=== PATIENT | male | born 1970 | race Caucasian/White ===

== ENCOUNTER → 2016-05-17 | Outpatient (CLI) | payer MEDICARE ==
[~2016-05-17] MED LIST: CELEXA20 MG PO; CUBICIN 500 MG500 MG IV; LISINOPRIL10 MG PO; LORTAB 5-325 M1 EACH PO; LOVENOX SY40 MG/0.4 SQ; PERCOCET 5-3251 EACH PO; ROXICODONE TAB 55 MG PO; TRAZODONE HCL50 MG PO
== END ==
DX: M89.15 Physeal arrest, femur (principal); Z98.890 Other specified postprocedural states
CPT/HCPCS: 73700

== ENCOUNTER → 2016-05-25 | Outpatient (CLI) | payer MEDICARE | LOC: US 09:30 | DX: R10.13 Epigastric pain (principal); R93.2 Abnormal findings on diagnostic imaging of liver and biliary tract | CPT/HCPCS: 76700 ==

== ENCOUNTER → 2016-06-18 | Outpatient (CLI) | payer MEDICARE | LOC: CT 08:00 | DX: R10.13 Epigastric pain (principal); R93.2 Abnormal findings on diagnostic imaging of liver and biliary tract | CPT/HCPCS: J7050; Q9962 ==

== ENCOUNTER → 2016-06-28 | Outpatient (CLI) | payer MEDICARE | LOC: NM 06-21 10:00 | DX: R10.13 Epigastric pain (principal) | CPT/HCPCS: 78226; A9537 ==

== ENCOUNTER → 2016-07-09 | Outpatient (CLI) | payer MEDICARE | LOC: KOH-I 14:52 | DX: S72.402K Unspecified fracture of lower end of left femur, subsequent encounter for closed fracture with nonunion (principal) | CPT/HCPCS: 73700 ==

== ENCOUNTER 2016-07-19 10:50 | Inpatient (IN) | payer MEDICARE, OTHER ==
[~2016-07-19] VITALS: Ht 170.2 cm; Wt 81.6 kg
[2016-07-19 12:17] LABS: HEMOGLOBIN 14.1 gm/dl (14.0-17.5); RED BLOOD COUNT 4.88 M/UL (4.20-5.50); WHITE BLOOD COUNT 7.3 K/UL (4.5-11.0)
[2016-07-19 12:20] LABS: BUN/CREATININE RATIO 16 (0-10)
[2016-07-19] MEDS ORDERED: TRAZODONE HCL50 MG PO (17:08)
[2016-07-19] MEDS ORDERED: LISINOPRIL10 MG PO (17:08)
[2016-07-19] MEDS ORDERED: CELEXA20 MG PO (17:08)
[2016-07-19] MEDS ORDERED: LORTAB 5-325 M1 EACH PO (17:09)
[2016-07-20 05:29] LABS: HEMOGLOBIN 13.8 gm/dl (14.0-17.5); RED BLOOD COUNT 4.78 M/UL (4.20-5.50); WHITE BLOOD COUNT 6.1 K/UL (4.5-11.0)
[2016-07-20 05:55] LABS: BUN/CREATININE RATIO 17 (0-10)
[2016-07-21 05:01] LABS: HEMOGLOBIN 12.4 gm/dl (14.0-17.5)
[2016-07-21 05:05] LABS: RED BLOOD COUNT 4.3 M/UL (4.20-5.50); WHITE BLOOD COUNT 10.9 K/UL (4.5-11.0)
[2016-07-21 05:22] LABS: BUN/CREATININE RATIO 14 (0-10)
[2016-07-22 05:15] LABS: RED BLOOD COUNT 4.2 M/UL (4.20-5.50)
[2016-07-22 05:16] LABS: WHITE BLOOD COUNT 7.6 K/UL (4.5-11.0)
[2016-07-22 05:56] LABS: BUN/CREATININE RATIO 13 (0-10)
[2016-07-23 05:25] LABS: HEMOGLOBIN 12.9 gm/dl (14.0-17.5); RED BLOOD COUNT 4.4 M/UL (4.20-5.50); WHITE BLOOD COUNT 7.4 K/UL (4.5-11.0)
[2016-07-23 05:51] LABS: BUN/CREATININE RATIO 14 (0-10)
[2016-07-23] MEDS ORDERED: LOVENOX SY40 MG/0.4 SQ (13:48)
[2016-07-23] MEDS ORDERED: CUBICIN 500 MG500 MG IV (13:52)
[2016-07-23] MEDS ORDERED: ROXICODONE TAB 55 MG PO (14:06)
[2016-07-23] MEDS ORDERED: PERCOCET 5-3251 EACH PO (15:59)
== END 2016-07-23 17:10 | disposition home or self-care (01) | DRG 498 ==
LOC: OPSV2 10:50 → M/S 16:11
PROVIDERS: Internal Medicine Infectious Disease; ADMIT Orthopaedic Surgery
PROC: 3E0V329 Introduction of Other Anti-infective into Bones, Percutaneous Approach (ICD-10-PCS; 2016-07-20)
PROC: 0QPC04Z Removal of Internal Fixation Device from Left Lower Femur, Open Approach (ICD-10-PCS; principal; 2016-07-20 19:30)
DX: M86.152 Other acute osteomyelitis, left femur (principal); T84.621A Infection and inflammatory reaction due to internal fixation device of left femur, initial encounter; I10 Essential (primary) hypertension; F41.9 Anxiety disorder, unspecified; F32.9 Major depressive disorder, single episode, unspecified; K21.9 Gastro-esophageal reflux disease without esophagitis; Z98.890 Other specified postprocedural states; Z87.828 Personal history of other (healed) physical injury and trauma; W19.XXXS Unspecified fall, sequela; F17.210 Nicotine dependence, cigarettes, uncomplicated; Z79.899 Other long term (current) drug therapy; Z87.442 Personal history of urinary calculi
CPT/HCPCS: 36415; 73552; 76000; 80048; 80053; 80202; 82550; 85025; 85027; 86140; 87070; 87205; 97116; 97530; 97535; C1713; J0690; J0878; J1100; J1650; J2250; J2270; J2405; J2710; J2795; J3010; J3260; J3370; J7050; J7070; J7120

== ENCOUNTER → 2016-07-24 | Outpatient (CLI) | payer MEDICARE | LOC: OPSV 08:00 | DX: M86.8X5 Other osteomyelitis, thigh (principal) | CPT/HCPCS: 96365; J0878; J7050 ==

== ENCOUNTER → 2016-07-25 | Outpatient (CLI) | payer MEDICARE, OTHER ==
[~2016-07-25] VITALS: Ht 170.2 cm; Wt 81.6 kg
== END ==
LOC: OPSV 07:55
DX: M86.652 Other chronic osteomyelitis, left thigh (principal)
CPT/HCPCS: 96365; J0878; J7050

== ENCOUNTER → 2016-07-26 | Outpatient (CLI) | payer MEDICARE, OTHER ==
[~2016-07-26] VITALS: Ht 170.2 cm; Wt 81.6 kg
== END ==
LOC: OPSV 08:00
DX: M86.652 Other chronic osteomyelitis, left thigh (principal)
CPT/HCPCS: 96365; J0878; J7050

== ENCOUNTER → 2016-07-27 | Outpatient (CLI) | payer MEDICARE, OTHER ==
[~2016-07-27] VITALS: Ht 170.2 cm; Wt 81.6 kg
== END ==
LOC: OPSV 14:54
DX: M86.652 Other chronic osteomyelitis, left thigh (principal)
CPT/HCPCS: 96365; J0878; J7050

== ENCOUNTER → 2016-07-28 | Outpatient (CLI) | payer MEDICARE, OTHER ==
[~2016-07-28] VITALS: Ht 170.2 cm; Wt 81.6 kg
== END ==
LOC: OPSV 15:00
DX: M86.652 Other chronic osteomyelitis, left thigh (principal)
CPT/HCPCS: 96365; J0878; J7050

== ENCOUNTER → 2016-07-29 | Outpatient (CLI) | payer MEDICARE, OTHER ==
[2016-07-29 17:21] LABS: BUN/CREATININE RATIO 20 (0-10)
== END ==
LOC: OPSV 15:00
PROVIDERS: Internal Medicine Infectious Disease
DX: M86.652 Other chronic osteomyelitis, left thigh (principal)
CPT/HCPCS: 36415; 80048; 82550; 86140; 96365; J0878; J7050

== ENCOUNTER → 2016-07-30 | Outpatient (CLI) | payer MEDICARE, OTHER ==
[~2016-07-30] VITALS: Ht 170.2 cm; Wt 81.6 kg
== END ==
LOC: OPSV 08:30
DX: M86.8X5 Other osteomyelitis, thigh (principal)
CPT/HCPCS: 96365; J0878; J7050

== ENCOUNTER → 2016-07-31 | Outpatient (CLI) | payer MEDICARE, OTHER ==
[~2016-07-31] VITALS: Ht 170.2 cm; Wt 81.6 kg
== END ==
LOC: OPSV 07:41
DX: M86.652 Other chronic osteomyelitis, left thigh (principal)
CPT/HCPCS: 96365; J0878; J7050

== ENCOUNTER → 2016-08-01 | Outpatient (CLI) | payer MEDICARE, OTHER ==
[~2016-08-01] VITALS: Ht 170.2 cm; Wt 81.6 kg
== END ==
LOC: OPSV 08:04
DX: M86.652 Other chronic osteomyelitis, left thigh (principal)
CPT/HCPCS: 96365; J0878; J7050

== ENCOUNTER → 2016-08-02 | Outpatient (CLI) | payer MEDICARE, OTHER ==
[~2016-08-02] VITALS: Ht 170.2 cm; Wt 81.6 kg
== END ==
LOC: OPSV 10:30
DX: M86.652 Other chronic osteomyelitis, left thigh (principal)
CPT/HCPCS: 96365; J0878; J7050

== ENCOUNTER → 2016-08-03 | Outpatient (CLI) | payer MEDICARE, OTHER ==
[~2016-08-03] VITALS: Ht 170.2 cm; Wt 81.6 kg
== END ==
LOC: OPSV 14:59
DX: M86.652 Other chronic osteomyelitis, left thigh (principal)
CPT/HCPCS: 96365; J0878; J7050

== ENCOUNTER → 2016-08-04 | Outpatient (CLI) | payer MEDICARE, OTHER ==
[~2016-08-04] VITALS: Ht 170.2 cm; Wt 81.6 kg
== END ==
LOC: OPSV 14:49
DX: M86.652 Other chronic osteomyelitis, left thigh (principal)
CPT/HCPCS: 96365; J0878; J7050

== ENCOUNTER → 2016-08-05 | Outpatient (CLI) | payer MEDICARE, OTHER ==
[~2016-08-05] VITALS: Ht 170.2 cm; Wt 81.6 kg
[2016-08-05 15:50] LABS: BUN/CREATININE RATIO 14 (0-10)
== END ==
LOC: OPSV 14:45
PROVIDERS: Internal Medicine Infectious Disease
DX: M86.652 Other chronic osteomyelitis, left thigh (principal)
CPT/HCPCS: 36415; 80048; 82550; 86140; 96365; J0878; J7050

== ENCOUNTER → 2016-08-06 | Outpatient (CLI) | payer MEDICARE, OTHER ==
[~2016-08-06] VITALS: Ht 170.2 cm; Wt 81.6 kg
== END ==
LOC: OPSV 14:48
DX: M86.652 Other chronic osteomyelitis, left thigh (principal)
CPT/HCPCS: 96365; J0878; J7050

== ENCOUNTER → 2016-08-07 | Outpatient (CLI) | payer MEDICARE, OTHER ==
[~2016-08-07] VITALS: Ht 170.2 cm; Wt 81.6 kg
== END ==
LOC: OPSV 08:05
DX: M86.60 Other chronic osteomyelitis, unspecified site (principal)
CPT/HCPCS: 96365; J0878; J7050

== ENCOUNTER → 2016-08-08 | Outpatient (CLI) | payer MEDICARE, OTHER ==
[~2016-08-08] VITALS: Ht 170.2 cm; Wt 81.6 kg
== END ==
LOC: OPSV 07:35
DX: M86.60 Other chronic osteomyelitis, unspecified site (principal)
CPT/HCPCS: 96365; J0878; J7050

== ENCOUNTER → 2016-08-09 | Outpatient (CLI) | payer MEDICARE, OTHER | LOC: OPSV 14:58 | DX: M86.652 Other chronic osteomyelitis, left thigh (principal) | CPT/HCPCS: 96365; J0878; J7050 ==

== ENCOUNTER → 2016-08-10 | Outpatient (CLI) | payer MEDICARE, OTHER ==
[~2016-08-10] VITALS: Ht 170.2 cm; Wt 81.6 kg
== END ==
LOC: OPSV 15:00
DX: M86.652 Other chronic osteomyelitis, left thigh (principal)
CPT/HCPCS: 96365; J0878; J7050

== ENCOUNTER → 2016-08-11 | Outpatient (CLI) | payer MEDICARE, OTHER ==
[~2016-08-11] VITALS: Ht 170.2 cm; Wt 81.6 kg
== END ==
LOC: OPSV 15:00
DX: M86.652 Other chronic osteomyelitis, left thigh (principal)
CPT/HCPCS: 96365; J0878; J7050

== ENCOUNTER → 2016-08-12 | Outpatient (CLI) | payer MEDICARE, OTHER ==
[~2016-08-12] VITALS: Ht 170.2 cm; Wt 81.6 kg
[2016-08-12 16:13] LABS: BUN/CREATININE RATIO 14 (0-10)
== END ==
LOC: OPSV 14:59
PROVIDERS: Internal Medicine Infectious Disease
DX: M86.8X6 Other osteomyelitis, lower leg (principal)
CPT/HCPCS: 36415; 80048; 82550; 86140; 96365; J0878; J7050

== ENCOUNTER → 2016-08-13 | Outpatient (CLI) | payer MEDICARE, OTHER ==
[~2016-08-13] VITALS: Ht 170.2 cm; Wt 81.6 kg
== END ==
LOC: OPSV 15:00
DX: M86.652 Other chronic osteomyelitis, left thigh (principal)
CPT/HCPCS: 96365; J0878; J7050

== ENCOUNTER → 2016-08-14 | Outpatient (CLI) | payer MEDICARE, OTHER ==
[~2016-08-14] VITALS: Ht 170.2 cm; Wt 81.6 kg
== END ==
LOC: OPSV 09:00
DX: M86.8X5 Other osteomyelitis, thigh (principal)
CPT/HCPCS: 96365

== ENCOUNTER → 2016-08-15 | Outpatient (CLI) | payer MEDICARE, OTHER ==
[~2016-08-15] VITALS: Ht 170.2 cm; Wt 81.6 kg
== END ==
LOC: OPSV 08:44
DX: M86.8X6 Other osteomyelitis, lower leg (principal)
CPT/HCPCS: 96365; J0878; J7050

== ENCOUNTER → 2016-08-16 | Outpatient (CLI) | payer MEDICARE, OTHER ==
[~2016-08-16] VITALS: Ht 170.2 cm; Wt 81.6 kg
== END ==
LOC: OPSV 15:00
DX: M86.8X5 Other osteomyelitis, thigh (principal)
CPT/HCPCS: 96365; J0878; J7050

== ENCOUNTER → 2016-08-17 | Outpatient (CLI) | payer MEDICARE, OTHER | LOC: OPSV 15:00 | DX: M86.652 Other chronic osteomyelitis, left thigh (principal) | CPT/HCPCS: 96365; J0878; J7050 ==

== ENCOUNTER → 2016-08-18 | Outpatient (CLI) | payer MEDICARE, OTHER ==
[~2016-08-18] VITALS: Ht 170.2 cm; Wt 81.6 kg
== END ==
LOC: OPSV 15:00
DX: M86.8X5 Other osteomyelitis, thigh (principal)
CPT/HCPCS: 96365; J0878; J7050

== ENCOUNTER → 2016-08-19 | Outpatient (CLI) | payer MEDICARE, OTHER ==
[~2016-08-19] VITALS: Ht 170.2 cm; Wt 81.6 kg
[2016-08-19 13:33] LABS: BUN/CREATININE RATIO 18 (0-10)
== END ==
LOC: OPSV 12:14
PROVIDERS: Internal Medicine Infectious Disease
DX: M86.652 Other chronic osteomyelitis, left thigh (principal)
CPT/HCPCS: 36415; 80048; 82550; 86140; 96365; J0878; J7050

== ENCOUNTER → 2016-08-20 | Outpatient (CLI) | payer MEDICARE, OTHER ==
[~2016-08-20] VITALS: Ht 170.2 cm; Wt 81.6 kg
== END ==
LOC: OPSV 15:00
DX: M86.652 Other chronic osteomyelitis, left thigh (principal)
CPT/HCPCS: 96365; J0878; J7050

== ENCOUNTER → 2016-08-21 | Outpatient (CLI) | payer MEDICARE, OTHER ==
[~2016-08-21] VITALS: Ht 170.2 cm; Wt 81.6 kg
== END ==
LOC: OPSV 07:39
DX: M86.8X5 Other osteomyelitis, thigh (principal)
CPT/HCPCS: 96365; J0878; J7050

== ENCOUNTER → 2016-08-22 | Outpatient (CLI) | payer MEDICARE, OTHER ==
[~2016-08-22] VITALS: Ht 170.2 cm; Wt 81.6 kg
== END ==
LOC: OPSV 08:32
DX: M86.652 Other chronic osteomyelitis, left thigh (principal)
CPT/HCPCS: 96365; J0878; J7050

== ENCOUNTER → 2016-08-23 | Outpatient (CLI) | payer MEDICARE, OTHER ==
[~2016-08-23] VITALS: Ht 170.2 cm; Wt 81.6 kg
== END ==
LOC: OPSV 15:00
DX: M86.652 Other chronic osteomyelitis, left thigh (principal)
CPT/HCPCS: 96365; J0878; J7050

== ENCOUNTER → 2016-08-24 | Outpatient (CLI) | payer MEDICARE, OTHER ==
[~2016-08-24] VITALS: Ht 170.2 cm; Wt 81.6 kg
[2016-09-03 16:23] LABS: BUN/CREATININE RATIO 18 (0-10)
== END ==
LOC: OPSV 15:00
PROVIDERS: Internal Medicine Infectious Disease
DX: M86.8X5 Other osteomyelitis, thigh (principal)
CPT/HCPCS: 82550; 86140; 96365; J0878; J7050

== ENCOUNTER → 2016-08-25 | Outpatient (CLI) | payer MEDICARE, OTHER ==
[~2016-08-25] VITALS: Ht 170.2 cm; Wt 81.6 kg
== END ==
LOC: OPSV 15:00
DX: M86.652 Other chronic osteomyelitis, left thigh (principal)
CPT/HCPCS: 96365; J0878

== ENCOUNTER → 2016-08-26 | Outpatient (CLI) | payer MEDICARE, OTHER ==
[~2016-08-26] VITALS: Ht 170.2 cm; Wt 81.6 kg
[2016-08-26 15:33] LABS: BUN/CREATININE RATIO 18 (0-10)
[2016-08-26 15:51] LABS: HEMOGLOBIN 14.3 gm/dl (14.0-17.5); RED BLOOD COUNT 4.9 M/UL (4.20-5.50); WHITE BLOOD COUNT 6.4 K/UL (4.5-11.0)
== END ==
LOC: OPSV 14:28
PROVIDERS: Internal Medicine Infectious Disease
DX: M86.652 Other chronic osteomyelitis, left thigh (principal)
CPT/HCPCS: 36415; 80048; 82550; 85025; 86140; 96365; J0878; J7050

== ENCOUNTER → 2016-08-27 | Outpatient (CLI) | payer MEDICARE, OTHER ==
[~2016-08-27] VITALS: Ht 170.2 cm; Wt 81.6 kg
== END ==
LOC: OPSV 15:00
DX: M86.652 Other chronic osteomyelitis, left thigh (principal)
CPT/HCPCS: 96365; J0878; J7050

== ENCOUNTER → 2016-08-28 | Outpatient (CLI) | payer MEDICARE, OTHER ==
[~2016-08-28] VITALS: Ht 170.2 cm; Wt 81.6 kg
== END ==
LOC: OPSV 07:29
DX: M86.652 Other chronic osteomyelitis, left thigh (principal)
CPT/HCPCS: 96365; J0878; J7050

== ENCOUNTER → 2016-08-29 | Outpatient (CLI) | payer MEDICARE, OTHER ==
[~2016-08-29] VITALS: Ht 170.2 cm; Wt 81.6 kg
== END ==
LOC: OPSV 07:09
DX: M86.652 Other chronic osteomyelitis, left thigh (principal)
CPT/HCPCS: 96365; J0878; J7050

== ENCOUNTER → 2016-08-30 | Outpatient (CLI) | payer MEDICARE, OTHER ==
[~2016-08-30] VITALS: Ht 170.2 cm; Wt 81.6 kg
== END ==
LOC: OPSV 15:00
DX: M86.652 Other chronic osteomyelitis, left thigh (principal)
CPT/HCPCS: 96365; J0878; J7050

== ENCOUNTER → 2016-08-31 | Outpatient (CLI) | payer MEDICARE, OTHER ==
[~2016-08-31] VITALS: Ht 170.2 cm; Wt 81.6 kg
== END ==
LOC: OPSV 11:27
DX: M86.652 Other chronic osteomyelitis, left thigh (principal)
CPT/HCPCS: 96365; J0878; J7050

== ENCOUNTER → 2016-09-01 | Outpatient (CLI) | payer MEDICARE, OTHER ==
[~2016-09-01] VITALS: Ht 170.2 cm; Wt 81.6 kg
== END ==
LOC: OPSV 15:00
DX: M86.652 Other chronic osteomyelitis, left thigh (principal)
CPT/HCPCS: 96365; J0878; J7050

== ENCOUNTER → 2020-07-15 | Outpatient (CLI) | payer MEDICARE ==
[~2020-07-15] MED LIST changes: +ATENOLOL25 MG PO; +BACTROBAN OINT22 GM EXT; +IBUPROFEN600 MG PO; +KEFLEX CAP 500500 MG PO; +LODINE CAP 300300 MG PO; +NORCO 5-325 TA1 EACH PO; +ZOFRAN ODT 4 MG4 MG PO
== END ==
LOC: RAD 12:32
DX: M54.5 Low back pain (principal); R06.02 Shortness of breath; M47.816 Spondylosis without myelopathy or radiculopathy, lumbar region
CPT/HCPCS: 71046; 72100; 72220

== ENCOUNTER 2020-09-05 22:42 | Emergency (ER) | payer MEDICARE ==
[~2020-09-05 22:42] MED LIST changes: -LODINE CAP 300300 MG PO; -ZOFRAN ODT 4 MG4 MG PO
[2020-09-05 23:10] LABS: HEMOGLOBIN 15.1 gm/dl (14.0-17.5); RED BLOOD COUNT 5.04 M/UL (4.20-5.50); WHITE BLOOD COUNT 6.2 K/UL (4.5-11.0)
[2020-09-06] MEDS ORDERED: ZOFRAN ODT 4 MG4 MG PO (01:14)
[2020-09-06] MEDS ORDERED: LODINE CAP 300300 MG PO (01:14)
== END 2020-09-06 01:30 | disposition home or self-care (01) ==
LOC: ER1 22:42
PROVIDERS: Physician Assistant
DX: R10.32 Left lower quadrant pain (principal); R11.0 Nausea; I10 Essential (primary) hypertension
CPT/HCPCS: 80053; 81001; 83605; 83690; 85025; 87086; 96374; 96375; 96376; 99284; J1885; J2270; J2405; J7030

== ENCOUNTER → 2020-10-07 | Outpatient (CLI) | payer MEDICARE ==
[~2020-10-07] MED LIST changes: +LODINE CAP 300300 MG PO; +ZOFRAN ODT 4 MG4 MG PO
== END ==
LOC: KOH-I 13:00 → EMI 13:00 → KOH-I 15:30
DX: M51.16 Intervertebral disc disorders with radiculopathy, lumbar region (principal); M53.3 Sacrococcygeal disorders, not elsewhere classified; M54.5 Low back pain; M46.1 Sacroiliitis, not elsewhere classified; M47.26 Other spondylosis with radiculopathy, lumbar region; M25.78 Osteophyte, vertebrae; M48.061 Spinal stenosis, lumbar region without neurogenic claudication
CPT/HCPCS: 72148; 72195

== ENCOUNTER → 2021-04-28 | Outpatient (CLI) | payer MEDICARE | LOC: NM 14:00 | DX: R10.11 Right upper quadrant pain (principal) | CPT/HCPCS: 78226; A9537 ==